=== PATIENT | male | born 1990 | race African-American/Black ===

== ENCOUNTER 2017-12-10 07:48 | Day surgery (SDC) | payer OTHER ==
[~2017-12-10] VITALS: Ht 180.3 cm; Wt 74.8 kg
--- NOTE | ~2017-12-10 | OP ---
PATIENT NAME: HANNAH BRODERICK MEDICAL RECORD: [id number] :88 LOCATION:[facility] ADMISSION DATE: SURGEON: FABIAN CALABRESE MD DATE OF OPERATION: 12/10/2017 PREOPERATIVE DIAGNOSES: 1. Intractably symptomatic hemorrhoids. 2. Blood loss anemia from bleeding internal hemorrhoids. POSTOPERATIVE DIAGNOSES: 1. Intractably symptomatic hemorrhoids. 2. Blood loss anemia from bleeding internal hemorrhoids. PROCEDURE: Procedure for prolapse and hemorrhoids. SURGEON: Fabian Calabrese MD SHEET LAYER: None. BLOOD LOSS: Minimal. ANESTHESIA: General. COMPLICATIONS: None. I discussed the pathophysiology of hemorrhoids with the patient. We specifically discussed the risks, possible complications, alternatives to a procedure for prolapse and hemorrhoids. We discussed alternate methods of controlling hemorrhoidal issues including hemorrhoidectomy and internal hemorrhoidal banding. The patient elected to proceed with a procedure for prolapse and hemorrhoids. The discussion specifically included, but was not limited to, bleeding, requiring emergency reoperation; infection; anal stenosis; fecal incontinence; and recurrent hemorrhoidal symptoms. OPERATIVE COURSE: The patient was conveyed to the operating room electively on 12/10/2017. General anesthesia was induced by the anesthesia staff. The patient was placed in the lithotomy position. The buttocks were taped laterally. The anus and perianal areas were sterilely prepped and draped. The anus was dilated laterally to 3 fingers. A PPH retractor was placed. The retractor was sutured to the surrounding anoderm with 2-0 silk sutures. A 2-0 Prolene mucosal pursestring suture was applied 1 cm cephalad to the clear retractor. The PPH stapling device was advanced with the anvil cephalad to the pursestring suture, which was then tightened and tied. The stapling device was engaged. It was held in place for 2 minutes. It was then fired. It was removed under direct vision. There was an entire donut of hemorrhoidal and lower rectal mucosal tissue within the stapling device. Bleeding along the anastomotic staple line was controlled with [id number] 3-0 Vicryls. A combination of Marcaine and a steroid preparation was used to infiltrate the perianal tissues. Gelfoam was applied within anus and lower rectum. A topical anesthetic cream was applied to the external hemorrhoids. The patient was then extubated and conveyed to postanesthesia care unit. There is no need for the patient to follow up with me in the office. [facility]. [facility] to the [facility] OPERATIVE REPORT [id number] HANNAH BRODERICK with hydrocodone and Valium as well as Colace. TRANSINT:[id number] Voice Confirmation ID: [id number] DOCUMENT ID: [id number] FABIAN CALABRESE MD CC: [id number] DICTATION DATE: 12/10/17 1320 FAMILY PHYSICIAN: 12/10/17 1441 REG [facility] [address] [place] [address]
[2017-12-10] MEDS ORDERED: COLACE100 MG PO (08:26)
[2017-12-10 08:38] VITALS: BP 149/78; Ht 180.3 cm; Wt 74.8 kg
[2017-12-10 09:28] LABS: HEMATOCRIT 38.4 % (42.0-54.0); HEMOGLOBIN 11.9 g/dL (13.5-17.5); MCH 24.7 pg (26.0-34.0); MCV 79.7 fL (80.0-100.0); MEAN PLATELET VOLUME 10.5 fL (7.4-10.4); RBC 4.82 10x6/uL (4.20-6.10); RDW 17.8 % (11.5-14.5); WBC 3.2 10x3/uL (4.8-10.8)
== END 2017-12-10 14:45 | disposition other institution (70) ==
LOC: D.OPS 07:48
PROVIDERS: Anesthesiology
DX: K64.8 Other hemorrhoids (principal); D50.0 Iron deficiency anemia secondary to blood loss (chronic); Z01.812 Encounter for preprocedural laboratory examination

== ENCOUNTER → 2020-07-10 19:35 | Outpatient (CLI) | payer OTHER ==
[2017-12-10 08:38] VITALS: BMI 23.0
[~2020-07-10 19:35] MED LIST: COLACE100 MG PO
== END | disposition home or self-care (01) ==
LOC: D.LABREF 19:35
PROVIDERS: ATTEND Surgery
DX: Z11.59 Encounter for screening for other viral diseases (principal)

== ENCOUNTER 2020-07-12 06:33 | Day surgery (SDC) | payer OTHER ==
[2017-12-10 08:38] VITALS: BMI 23.0
== END 2020-07-12 08:20 ==
LOC: D.OPS 06:33
PROVIDERS: ATTEND Surgery
DX: K64.8 Other hemorrhoids (principal); K64.4 Residual hemorrhoidal skin tags; Z53.8 Procedure and treatment not carried out for other reasons

== ENCOUNTER → 2020-08-04 06:20 | Day surgery (SDC) | payer OTHER ==
[2017-12-10 08:38] VITALS: BMI 23.0
== END | disposition home or self-care (01) ==
LOC: D.OPS 06:20
PROVIDERS: ATTEND Surgery
DX: K64.8 Other hemorrhoids (principal); K64.4 Residual hemorrhoidal skin tags; Z53.9 Procedure and treatment not carried out, unspecified reason